=== PATIENT | female | born 1960 | race Caucasian/White ===

== ENCOUNTER 2020-03-12 17:20 | Emergency (ER) | payer OTHER, SELFPAY ==
[2020-03-12 17:21] VITALS: BP 185/114; PULSE 135; RESP 18; TEMP 36.3; O2SAT 97; BMI 47.6
[2020-03-12 17:27] VITALS: O2SAT 98
--- NOTE | 2020-03-12 17:47 | EKG12_ITS ---
Test Reason : SOB Blood Pressure : / mmHG Vent. Rate : 116 BPM Atrial Rate : 116 BPM P-R Int : 136 ms QRS Dur : 076 ms QT Int : 326 ms P-R-T Axes : 023 037 043 degrees QTc Int : 453 ms Sinus tachycardia Otherwise normal ECG Confirmed by OLIVIA AREVALO, ELIZA ([id number]), videotape editor MARK SOTO ([id number]) on 03/18/2020 7:57:19 AM Referred By: VIKY Confirmed By:JEFRY BAKER MD
--- NOTE | 2020-03-12 17:58 | ED.VIS.GEN ---
History of Present Illness Chief Complaint: Shortness of Breath Informant: Patient Onset: Yesterday Narrative: 59-year-old female presenting with shortness of breath. She states this started today when she was at work and she started to feel like her blood pressure was up as well. She does state ramapril on a daily basis. Patient states she also has history of PTSD and her job is been more stressful lately. She states that today was particularly stressful and she feels like she is very anxious. She works in physical therapy. Patient states he started to have a sore throat yesterday with a slight cough, but also states she has seasonal allergies. She called her PCP who told her to come to the emergency room for evaluation. She has no history of DVT/PE. She is a non-smoker. She denies cardiac history and is not having any chest pain. Past Medical History - Allergies and Home Meds Allergies/Adverse Reactions: Allergies Sulfa (Sulfonamide Antibiotics) Allergy (Verified 09/10/13 21:35) Rash Primary Care Physician: Danyel Lopes MD [Primary Care Provider] - Past Medical History: - - PTSD, hypertension Lives: With Family Smoking Status: Never smoker Alcohol: None Drugs: None Review of Systems General: Denies: Chills, Fever, Sweats Eyes: Denies: Visual changes - bilaterally, Diplopia ENT: Reports: Rhinorrhea, Sore throat Cardiovascular: Reports: Palpitations, Heart racing. Denies: Chest pain Respiratory: Reports: Dyspnea, Cough Gastrointestinal: Denies: Abdominal pain, Nausea, Vomiting Genitourinary: Denies: Dysuria, Hematuria Musculoskeletal: Reports: Myalgias. Denies: Arthralgias, Neck pain Skin: Denies: Rash, Abscess Neurological: Denies: Headache, Weakness Psych: Reports: Anxiety. Denies: Suicidal thoughts, Suicidal ideations Physical Exam Vital Signs/Narrative: Vital Signs Temp Pulse Resp BP Pulse Ox 03/12/20 17:21 97.3 F L 135 H 18 185/114 H 97 General: Obese, No Acute Distress Head: Normocephalic, Atraumatic Eyes: Perrl, EOMI. Negative for: Scleral icterus ENT: Moist mucous membranes, No rhinorrhea, - - Oropharynx has no erythema or exudates. Cardiovascular: Regular rhythm, Tachycardia Respiratory: No distress, CTA bilaterally, Chest nontender Back: Nontender, Normal Inspection Extremities: Nontender Skin: Normal color, No rash Neurological: Alert, Oriented x3 Psychological: Normal affect, Normal Mood Diagnostic/Tx/Re-eval - Rhythm Strip Rhythm Strip: Sinus Rhythm Rate: 116 - EKG Initial EKG Interpretation: Sinus Tachycardia - Medical Decision Making 59-year-old female presenting with mild symptoms of cough, sore throat, anxiety. Patient did have an EKG which is sinus rhythm without signs of ischemia although he was tachycardic. Lab work was within normal limits. Dimer negative. Chest x-ray negative. After discussing these findings she felt reassured I do not believe this is a cardiac etiology. 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 She will quarantine. She is given strict return precautions. Patient stable for discharge. Impression: 1. Sore throat 2. Shortness of breath 3. Cough ED Disposition - Plan for ED Patient: Disposition: Home or Assisted Living Instructions: ED Dyspnea, ED Viral Syndrome Referrals: Danyel Lopes MD [Primary Care Provider] -
--- NOTE | 2020-03-12 18:05 | RAD_ITS ---
STUDY: X-RAY CHEST REASON FOR EXAM: Female, 59 years old. Shortness of breath. Sore throat. TECHNIQUE: Frontal view of the chest COMPARISON: 09/10/13 FINDINGS: The lungs are clear. There are no pleural effusions. There is no pneumothorax. The heart is normal in size. The visualized osseous structures are within normal limits. RAD/Chest 1 View (Portable) IMPRESSION: No acute thoracic pathology. Electronically Signed: Giovanny [place], at 18:30 EDT Tel , Service support ,
[2020-03-12 18:16] LABS: Absolute Lymphocyte Count 2.52 X10^3/uL (0.83-4.51); Absolute Neutrophil Count 7.4 X10^3/uL (2.0-7.7); Basophil# 0.04 X10^3/uL; Basophil% 0.4 % (0-1); Eosinophil# 0.21 X10^3/uL; Eosinophils% 1.9 % (0-5); Hematocrit 42.7 % (37-47); Hemoglobin 13.5 g/dL (12.0-15.0); Lymphocyte # 2.52 X10^3/ul (4.0); Mean Corp Hgb Conc 31.6 g/dL (32-36); Mean Corpuscular Hgb 26.4 pg (27.0-32.0); Mean Corpuscular Volume 83.4 fL (81-99); Mean Platelet Vol. 9.9 fl (6.2-12.0); Monocyte# 0.71 X10^3/uL; Monocyte% 6.5 % (0-10); NRBC Flagged by Analyzer 0 % (0-5); Neutrophil # 7.43 X10^3/uL (2.7-7.7); Neutrophil % 67.8 % (47-70); Platelet Count 320 K/mm3 (150-450); RBC Distribution Width CV 14.6 % (11.6-14.6); RBC Distribution Width SD 44.8 fl (35.1-43.9); Red Blood Count 5.12 M/mm3 (4.2-5.4)
[2020-03-12 18:20] VITALS: BP 181/116; PULSE 116; RESP 22; O2SAT 99
[2020-03-12] MEDS: Aspirin 81 MG TAB.CHEW 324 MG PO (18:27)
[2020-03-12 18:32] LABS: D-Dimer Quantitative (DVT/PE) 0.45 FEU/ug/m (0.27-0.49)
[2020-03-12 18:33] LABS: Anion Gap 5 (5-15); BUN 17 mg/dL (7-18); BUN/Creat Ratio 21.6 RATIO (10-20); Chloride 108 mmol/L (98-107); Creatinine, Serum 0.79 mg/dL (0.55-1.02); EST Glomerular Filtration Rate 80 mL/min (>60); Est Glom Filt Rate - Afr Amer 96 mL/min (>60); Estimated Creatinine Clearance 131.12 ml/min; Glucose 106 mg/dL (74-106); Potassium 4.8 mmol/L (3.5-5.1); Sodium Level 139 mmol/L (136-145)
[2020-03-12 19:04] VITALS: BP 141/115; PULSE 117; RESP 18; O2SAT 95
[2020-03-12 20:13] VITALS: BP 165/109; PULSE 117; RESP 18; O2SAT 94
[2020-03-12 21:12] VITALS: BP 141/97; PULSE 108; RESP 19; O2SAT 96
== END 2020-03-12 21:13 | disposition home or self-care (01) ==
PROVIDERS: Emergency Provider Student in an Organized Health Care Education/Training Program; PCP Family Medicine
DX: R06.02 Shortness of breath (principal); J02.9 Acute pharyngitis, unspecified; R05 Cough; I10 Essential (primary) hypertension; Z79.899 Other long term (current) drug therapy; R00.0 Tachycardia, unspecified
CPT/HCPCS: 71045; 80048; 84484; 85025; 85379; 87635; 93005; 99285; C9803; U0003

== ENCOUNTER 2020-10-03 14:08 | Outpatient (RCR) | payer MEDICARE, SELFPAY | END 2020-12-16 23:59 | LOC: IMMUN 14:08 | PROVIDERS: PCP Family Medicine; Visit Provider Family Medicine | DX: Z23 Encounter for immunization (principal) | CPT/HCPCS: 0001A; 0002A; 91300 ==